=== PATIENT | male | born 1990 | race Caucasian/White ===

== ENCOUNTER 2018-01-11 02:18 | Emergency (ER) | payer SELFPAY ==
[~2018-01-11] VITALS: Ht 165.1 cm; Wt 56.0 kg
[2018-01-11] MEDS ORDERED: ACETAMINOPHEN 650MG/20.3ML UDC PO ONE (08:15)
[2018-01-11] MEDS ORDERED: METOCLOPRAMIDE HCL 10MG TABLET PO ONE (08:15)
[2018-01-11] MEDS: KETOROLAC 60MG/2ML VIAL IM ONE ×2 (08:28→08:39)
[2018-01-11 08:30] VITALS: BP 120/74
== END 2018-01-11 08:53 | disposition home or self-care (01) ==
LOC: ER 02:18
DX: R51 Headache (principal); R00.1 Bradycardia, unspecified; F41.9 Anxiety disorder, unspecified; F17.200 Nicotine dependence, unspecified, uncomplicated; F12.10 Cannabis abuse, uncomplicated; Z88.0 Allergy status to penicillin
CPT/HCPCS: 93005; 99283; J1885; J8597